=== PATIENT | male | born 1970 | race Two or more races ===

== ENCOUNTER 2019-07-01 22:51 | Inpatient (IN) | payer MEDICAID ==
[~2019-07-01] VITALS: Ht 167.6 cm; Wt 48.9 kg
[2019-07-01] MEDS ORDERED: acetaminophen 650mg rectal suppository RC PRN (23:15)
[2019-07-01] MEDS ORDERED: glucagon, human recombinant 1mg kit SUBCUT PRN (23:15)
[2019-07-01] MEDS ORDERED: proCHLORperazine 10 MG/2 ml inj IV PRN (23:15)
[2019-07-01] MEDS ORDERED: ondansetron/PF 4mg/2ml inj IV PRN (23:15)
[2019-07-01] MEDS ORDERED: MESSAGE TO PHARMACY PO ONE (23:15)
[2019-07-01] MEDS ORDERED: dextrose 50%-water 50ml dispensing syringe IV PRN ×2 (23:15)
[2019-07-01] MEDS ORDERED: acetaminophen 325mg tablet PO PRN ×2 (23:15)
[2019-07-01] MEDS ORDERED: dextrose ORAL solution 15 GM/59 ML bottle PO PRN ×2 (23:15)
[2019-07-01 23:20] VITALS: BP 173/91
[2019-07-02] VITALS (25 sets, daily range): BP systolic 123–191; BP diastolic 67–109
[2019-07-02] MEDS ORDERED: HYDROcodone/acetaminophen 5mg/325mg tablet PO ONE
[2019-07-02] MEDS ORDERED: diphenhydrAMINE 25mg capsule PO PRN (00:05)
[2019-07-02] MEDS ORDERED: normal saline 1000ml 250 ML IV PRN (00:06)
[2019-07-02] MEDS ORDERED: normal saline 1000ml 100 ML IV PRN (00:06)
[2019-07-02] MEDS ORDERED: LIDOcaine 1% (10mg/ml) 2ml vial SQ ONE (00:10)
[2019-07-02 00:34] LABS: ALANINE AMINOTRANSFERASE 32 U/L (12-78); ALBUMIN 2.7 G/DL (3.4-5.0); ALBUMIN/GLOBULIN RATIO 0.8 (1.1-1.5); ALKALINE PHOSPHATASE 102 IU/L (46-116); ANION GAP 28 (8-16); ASPARTATE AMINO TRANSFERASE 24 U/L (10-37); BILIRUBIN,TOTAL 0.4 MG/DL (0.1-1.0); BLOOD UREA NITROGEN 190 MG/DL (7-18); BUN/CREATININE RATIO 17.2 (5.4-32.0); CHLORIDE 103 MMOL/L (99-107); CREATININE 11.04 MG/DL (0.60-1.10); GLUCOSE 195 MG/DL (70-104); LIPASE 183 U/L (73-393); MAGNESIUM 2.4 MG/DL (1.5-2.4); POTASSIUM 5.1 MMOL/L (3.5-5.1); SODIUM 139 MMOL/L (135-145); TOTAL PROTEIN 6.2 G/DL (6.4-8.2); eGFR 5 ML/MIN
[2019-07-02 00:51] LABS: CHOL/HDL RATIO 1.9 (0.00-4.99); CHOLESTEROL 79 MG/DL (0-200); HDL CHOLESTEROL 42 MG/DL (35-60); LDL CHOLESTEROL 30 MG/DL (50-100); TRIGLYCERIDES 38 MG/DL (20-135)
[2019-07-02 00:55] LABS: BASOPHILS % (AUTO) 0.4 % (0-1); EOSINOPHILS % (AUTO) 0.3 % (0-6); HEMATOCRIT 30.8 % (42.0-52.0); HEMOGLOBIN 10.5 g/dl (14.0-17.9); LYMPHOCYTES % (AUTO) 13.3 % (21-51); MEAN CORPUSCULAR HEMOGLOBIN 30.2 PG (27.0-31.0); MEAN CORPUSCULAR VOLUME 88.8 FL (78-98); MEAN PLATELET VOLUME 8.4 FL (7.4-10.4); MONOCYTES # (AUTO) 0.6 X10'3 (0-0.9); MONOCYTES % (AUTO) 7.3 % (2-12); NEUTROPHILS % (AUTO) 78.7 % (42-75); PLATELET COUNT 187 X10'3 (140-440); RED BLOOD COUNT 3.47 X10'6 (4.70-6.10); RED CELL DISTRIBUTION WIDTH 14.7 % (11.5-14.5); WHITE BLOOD COUNT 7.6 X10'3 (4.5-11.0)
[2019-07-02 01:00] LABS: CALCIUM > 20.0 MG/DL (8.5-10.1); PHOSPHORUS 14.6 MG/DL (2.3-4.5)
[2019-07-02 01:20] LABS: PARTIAL THROMBOPLASTIN TIME 31 SECONDS (22-32)
[2019-07-02 01:30] LABS: TROPONIN I < 0.04 NG/ML (0.0-0.05)
[2019-07-02 03:57] LABS: BASOPHILS % (AUTO) 0.2 % (0-1); EOSINOPHILS % (AUTO) 0.5 % (0-6); HEMATOCRIT 31.7 % (42.0-52.0); HEMOGLOBIN 10.8 g/dl (14.0-17.9); LYMPHOCYTES # (AUTO) 0.7 X10'3 (1.1-4.8); LYMPHOCYTES % (AUTO) 9.4 % (21-51); MEAN CORPUSCULAR HEMOGLOBIN 29.9 PG (27.0-31.0); MEAN CORPUSCULAR VOLUME 87.9 FL (78-98); MEAN PLATELET VOLUME 8.2 FL (7.4-10.4); MONOCYTES # (AUTO) 0.5 X10'3 (0-0.9); MONOCYTES % (AUTO) 7.6 % (2-12); NEUTROPHILS # (AUTO) 5.8 X10'3 (1.8-7.7); NEUTROPHILS % (AUTO) 82.3 % (42-75); PLATELET COUNT 201 X10'3 (140-440); RED CELL DISTRIBUTION WIDTH 15.1 % (11.5-14.5); WHITE BLOOD COUNT 7.1 X10'3 (4.5-11.0)
[2019-07-02 04:12] LABS: PARTIAL THROMBOPLASTIN TIME 30 SECONDS (22-32)
[2019-07-02 04:20] LABS: ALANINE AMINOTRANSFERASE 42 U/L (12-78); ALBUMIN 3.7 G/DL (3.4-5.0); ALBUMIN/GLOBULIN RATIO 0.8 (1.1-1.5); ALKALINE PHOSPHATASE 136 IU/L (46-116); ANION GAP 25 (8-16); ASPARTATE AMINO TRANSFERASE 28 U/L (10-37); BILIRUBIN,TOTAL 0.5 MG/DL (0.1-1.0); BLOOD UREA NITROGEN 160 MG/DL (7-18); BUN/CREATININE RATIO 16.1 (5.4-32.0); CHLORIDE 100 MMOL/L (99-107); CREATININE 9.96 MG/DL (0.60-1.10); GLUCOSE 92 MG/DL (70-104); MAGNESIUM 2.6 MG/DL (1.5-2.4); PHOSPHORUS 12.4 MG/DL (2.3-4.5); POTASSIUM 4.1 MMOL/L (3.5-5.1); SODIUM 139 MMOL/L (135-145); TOTAL PROTEIN 8.5 G/DL (6.4-8.2); eGFR 6 ML/MIN
[2019-07-02 04:21] LABS: HEMOGLOBIN A1C 7.5 % (4.5-6.2)
[2019-07-02] MEDS ORDERED: hydrALAZINE 20mg/ml inj. IV ONE (04:40)
[2019-07-02] MEDS ORDERED: DOCU-148 (04:44)
[2019-07-02] MEDS ORDERED: LISI-600 PO (04:45)
[2019-07-02] MEDS ORDERED: VORI200T3 PO (04:46)
[2019-07-02] MEDS ORDERED: BENA20TA82 PO (04:46)
[2019-07-02] MEDS ORDERED: FLUO10CA28 PO (04:49)
[2019-07-02] MEDS ORDERED: CALC667T6 PO (04:51)
[2019-07-02] MEDS ORDERED: LABE200T5 PO (04:54)
[2019-07-02] MEDS ORDERED: SODI650T29 PO (04:55)
[2019-07-02] MEDS ORDERED: [UNRECOGNIZED DRUG - CODE] (04:56)
[2019-07-02] MEDS ORDERED: ACET-2119 PO (04:57)
[2019-07-02] MEDS ORDERED: BRIM5DRO16 RIGHTEYE (04:58)
[2019-07-02] MEDS ORDERED: FURO80TA3 PO (04:59)
[2019-07-02] MEDS ORDERED: INSU100V9 SQ (05:01)
[2019-07-02] MEDS ORDERED: DORZ10DR18 RIGHTEYE (05:03)
[2019-07-02] MEDS: labetalol 100mg tablet PO SCH ×3 (05:23→20:29)
--- NOTE | 2019-07-02 06:30 | NUR ---
received report from patrice BAUER
[2019-07-02] MEDS ORDERED: labetalol 100mg tablet PO SCH (08:00)
[2019-07-02] MEDS ORDERED: non-formulary drug (Benazepril Hcl* (Lotensin*) 1 TAB) PO SCH (08:00)
[2019-07-02] MEDS: brimonidine 0.2% 5 ML ophthalmic drops RIGHTEYE SCH ×2 (08:00→20:00)
[2019-07-02] MEDS: dorzolamide/timolol (Cosopt) ophthalmic drops 10ml bottle RIGHTEYE SCH ×2 (08:00→20:00)
[2019-07-02] MEDS: heparin, porcine 5000 units/ml vial SQ SCH ×2 (08:39→20:30)
[2019-07-02] MEDS: furosemide 40mg tablet PO SCH ×2 (08:40→20:29)
[2019-07-02] MEDS: calcium acetate 667mg (PhosLO) capsule PO SCH ×2 (08:40→17:31)
[2019-07-02] MEDS: sodium bicarbonate 650mg tablet PO SCH ×4 (08:40→20:28)
[2019-07-02] MEDS: docusate sod 100mg capsule PO SCH ×2 (08:40→20:29)
[2019-07-02] MEDS: lisinopril 20mg tablet PO SCH (08:42)
[2019-07-02] MEDS: FLUoxetine 10mg capsule PO SCH (08:47)
[2019-07-02] MEDS: famotidine 20mg tablet PO SCH (08:47)
--- NOTE | 2019-07-02 15:53 | NUR ---
up to the chair with PT
--- NOTE | 2019-07-02 18:20 | NUR ---
Patient in room ICU 2043. I have received report from brooks marie and had the opportunity to ask questions and assume patient care.
[2019-07-02] MEDS: insulin glargine (Lantus) pen - multi-dose SQ SCH (20:37)
--- NOTE | 2019-07-02 20:45 | NUR ---
pt family came in to see patient. does not speak kiswahili but Phuong is fluent in kyrgyz and kiswahili. and phuong reports that patient was in the "hospital back in december and he experienced cardiac arrest then. patient has not been the same mentally sense and will try to answer questions he may not know the answer to in order to not appear confused." reports that patient had a similar episode of unconsciousness on Friday 06/29 and she performed chest compressions and patient woke up." pt not taken to the hospital at that time.
--- NOTE | 2019-07-02 21:30 | NUR ---
pt family brought in prescription eyedrops. eyedrops sent to pharmacy as home meds for use while the patient is in the hospital.
[2019-07-03] VITALS (24 sets, daily range): BP systolic 125–191; BP diastolic 67–103
[2019-07-03 04:27] LABS: BASOPHILS # (AUTO) 0.1 X10'3 (0-0.2); BASOPHILS % (AUTO) 0.6 % (0-1); EOSINOPHILS % (AUTO) 0.5 % (0-6); HEMATOCRIT 30.7 % (42.0-52.0); HEMOGLOBIN 10.3 g/dl (14.0-17.9); LYMPHOCYTES # (AUTO) 1.4 X10'3 (1.1-4.8); MEAN CORPUSCULAR HEMOGLOBIN 29.8 PG (27.0-31.0); MEAN CORPUSCULAR HGB CONC 33.5 g/dL (33.0-36.5); MEAN CORPUSCULAR VOLUME 88.9 FL (78-98); MEAN PLATELET VOLUME 8.3 FL (7.4-10.4); MONOCYTES # (AUTO) 0.7 X10'3 (0-0.9); MONOCYTES % (AUTO) 7.6 % (2-12); NEUTROPHILS # (AUTO) 7.1 X10'3 (1.8-7.7); NEUTROPHILS % (AUTO) 76.3 % (42-75); PLATELET COUNT 202 X10'3 (140-440); RED BLOOD COUNT 3.45 X10'6 (4.70-6.10); RED CELL DISTRIBUTION WIDTH 14.8 % (11.5-14.5); WHITE BLOOD COUNT 9.4 X10'3 (4.5-11.0)
[2019-07-03 04:40] LABS: PARTIAL THROMBOPLASTIN TIME 31 SECONDS (22-32)
[2019-07-03 04:50] LABS: ALANINE AMINOTRANSFERASE 32 U/L (12-78); ALBUMIN 3.1 G/DL (3.4-5.0); ALBUMIN/GLOBULIN RATIO 0.7 (1.1-1.5); ALKALINE PHOSPHATASE 117 IU/L (46-116); ANION GAP 28 (8-16); ASPARTATE AMINO TRANSFERASE 25 U/L (10-37); BILIRUBIN,TOTAL 0.6 MG/DL (0.1-1.0); CALCIUM 7.1 MG/DL (8.5-10.1); CHLORIDE 97 MMOL/L (99-107); GLUCOSE 75 MG/DL (70-104); MAGNESIUM 2.5 MG/DL (1.5-2.4); POTASSIUM 4.1 MMOL/L (3.5-5.1); SODIUM 138 MMOL/L (135-145); TOTAL PROTEIN 7.6 G/DL (6.4-8.2); eGFR 4 ML/MIN
[2019-07-03 05:07] LABS: TOTAL CARBON DIOXIDE 13.5 MMOL/L (24-32)
[2019-07-03 05:08] LABS: BLOOD UREA NITROGEN 168 MG/DL (7-18); BUN/CREATININE RATIO 13.8 (5.4-32.0)
[2019-07-03] MEDS: docusate sod 100mg capsule PO SCH ×2 (08:35→20:00)
[2019-07-03] MEDS: furosemide 40mg tablet PO SCH ×2 (08:35→20:14)
[2019-07-03] MEDS: sodium bicarbonate 650mg tablet PO SCH ×4 (08:35→20:14)
[2019-07-03] MEDS: labetalol 100mg tablet PO SCH ×2 (08:36→20:15)
[2019-07-03] MEDS: famotidine 20mg tablet PO SCH (08:37)
[2019-07-03] MEDS: FLUoxetine 10mg capsule PO SCH (08:37)
[2019-07-03] MEDS: lisinopril 20mg tablet PO SCH (08:37)
[2019-07-03] MEDS: heparin, porcine 5000 units/ml vial SQ SCH ×2 (08:38→20:15)
[2019-07-03] MEDS: calcium acetate 667mg (PhosLO) capsule PO SCH ×2 (09:15→18:15)
[2019-07-03] MEDS: brimonidine 0.2% 5 ML ophthalmic drops RIGHTEYE SCH ×2 (09:15→20:16)
[2019-07-03] MEDS: dorzolamide/timolol (Cosopt) ophthalmic drops 10ml bottle RIGHTEYE SCH ×2 (09:15→20:15)
[2019-07-03] MEDS ORDERED: LIDOcaine 1%/PF 5ML 10 MG/ML VIAL ONE (11:23)
[2019-07-03] MEDS ORDERED: LIDOcaine 1% w/epiNEPHrine 1:200,000 30ml vial ONE (11:37)
[2019-07-03] MEDS ORDERED: fentaNYL/PF 50MCG/1 ML 2ML syringe ONE (11:37)
[2019-07-03] MEDS ORDERED: midazolam 2 mg/2 ml injection ONE (11:37)
[2019-07-03] MEDS ORDERED: heparin 1,000unit/ml 10ml vial 10 ML ONE (11:37)
[2019-07-03] MEDS ORDERED: normal saline 1000ml 100 ML IV PRN (12:34)
[2019-07-03] MEDS ORDERED: normal saline 1000ml 250 ML IV PRN (12:34)
[2019-07-03] MEDS ORDERED: heparin 1,000 units/ml 10ml inj HE ONE ×2 (12:40)
--- NOTE | 2019-07-03 16:34 | NUR ---
Dr. Rell verdugo pt. increased blood pressure to SBP in 180s. Per Dr. Zacarias, tell stunt person to pull off 2L of fluid
--- NOTE | 2019-07-03 19:06 | NUR ---
184..Patient in room ICU 2043. I have received report from Alvin BAUER and had the opportunity to ask questions and assume patient care.
[2019-07-03] MEDS: insulin glargine (Lantus) pen - multi-dose SQ SCH (20:24)
--- NOTE | 2019-07-03 23:05 | NUR ---
2000..Assessment as noted, encouraged to stay off backside, states understanding, family at bedside to assist with communication.
[2019-07-04] VITALS (24 sets, daily range): BP systolic 140–179; BP diastolic 78–101
--- NOTE | 2019-07-04 00:16 | NUR ---
0000..Resting quietly, no changes noted.
--- NOTE | 2019-07-04 04:13 | NUR ---
0400..Continues resting quietly, no changes noted.
[2019-07-04 04:43] LABS: BASOPHILS # (AUTO) 0.1 X10'3 (0-0.2); BASOPHILS % (AUTO) 0.9 % (0-1); EOSINOPHILS % (AUTO) 0.6 % (0-6); HEMATOCRIT 32.8 % (42.0-52.0); HEMOGLOBIN 11.1 g/dl (14.0-17.9); LYMPHOCYTES # (AUTO) 1.1 X10'3 (1.1-4.8); LYMPHOCYTES % (AUTO) 13.7 % (21-51); MEAN CORPUSCULAR HEMOGLOBIN 29.9 PG (27.0-31.0); MEAN CORPUSCULAR VOLUME 87.8 FL (78-98); MEAN PLATELET VOLUME 8.5 FL (7.4-10.4); MONOCYTES # (AUTO) 0.7 X10'3 (0-0.9); MONOCYTES % (AUTO) 8.3 % (2-12); NEUTROPHILS % (AUTO) 76.5 % (42-75); PLATELET COUNT 197 X10'3 (140-440); RED BLOOD COUNT 3.73 X10'6 (4.70-6.10); WHITE BLOOD COUNT 7.9 X10'3 (4.5-11.0)
[2019-07-04 04:53] LABS: PARTIAL THROMBOPLASTIN TIME 28 SECONDS (22-32)
[2019-07-04 05:00] LABS: ALANINE AMINOTRANSFERASE 26 U/L (12-78); ALBUMIN 3.1 G/DL (3.4-5.0); ALBUMIN/GLOBULIN RATIO 0.6 (1.1-1.5); ALKALINE PHOSPHATASE 122 IU/L (46-116); ANION GAP 14 (8-16); ASPARTATE AMINO TRANSFERASE 20 U/L (10-37); BILIRUBIN,TOTAL 0.6 MG/DL (0.1-1.0); BLOOD UREA NITROGEN 64 MG/DL (7-18); BUN/CREATININE RATIO 9.9 (5.4-32.0); CALCIUM 7.7 MG/DL (8.5-10.1); CHLORIDE 97 MMOL/L (99-107); CREATININE 6.46 MG/DL (0.60-1.10); GLUCOSE 122 MG/DL (70-104); MAGNESIUM 2.1 MG/DL (1.5-2.4); PHOSPHORUS 6.8 MG/DL (2.3-4.5); POTASSIUM 3.5 MMOL/L (3.5-5.1); SODIUM 136 MMOL/L (135-145); TOTAL PROTEIN 8.2 G/DL (6.4-8.2); eGFR 9 ML/MIN
--- NOTE | 2019-07-04 06:34 | NUR ---
0630..Problems reprioritized. Patient report given, questions answered & plan of care reviewed with Dario Sandoval RN.
--- NOTE | 2019-07-04 06:35 | NUR ---
Patient in room ICU 2043. I have received report from ANGY BAUER and had the opportunity to ask questions and assume patient care.
[2019-07-04] MEDS: docusate sod 100mg capsule PO SCH ×2 (08:00→19:30)
[2019-07-04] MEDS ORDERED: pneumococcal 23-VAL P-sac vacc 25 mcg/0.5ml vial IMVAC ONE (10:00)
[2019-07-04] MEDS: lactulose 20gm/30ml cup PO PRN (10:06)
[2019-07-04] MEDS: calcium acetate 667mg (PhosLO) capsule PO SCH ×2 (10:07→13:13)
[2019-07-04] MEDS: furosemide 40mg tablet PO SCH ×2 (10:08→19:30)
[2019-07-04] MEDS: labetalol 100mg tablet PO SCH ×2 (10:08→19:31)
[2019-07-04] MEDS: famotidine 20mg tablet PO SCH (10:08)
[2019-07-04] MEDS: sodium bicarbonate 650mg tablet PO SCH ×4 (10:08→20:43)
[2019-07-04] MEDS: FLUoxetine 10mg capsule PO SCH (10:09)
[2019-07-04] MEDS: lisinopril 20mg tablet PO SCH (10:09)
[2019-07-04] MEDS: heparin, porcine 5000 units/ml vial SQ SCH ×2 (10:10→19:33)
[2019-07-04] MEDS: dorzolamide/timolol (Cosopt) ophthalmic drops 10ml bottle RIGHTEYE SCH ×2 (10:15→20:43)
[2019-07-04] MEDS: brimonidine 0.2% 5 ML ophthalmic drops RIGHTEYE SCH ×2 (10:16→20:43)
--- NOTE | 2019-07-04 11:13 | NUR ---
spoke with wound nurse regarding pt old wound on coccyx gluteal fold area. when pressure is applied, drainage is expressed on left gluteal fold and upper left cheek. patient's states this happens occasionally but has not happened in a few years. will inform .
[2019-07-04] MEDS ORDERED: LIDOcaine 1%/PF 5ML 10 MG/ML VIAL SQ ONE (14:45)
[2019-07-04] MEDS ORDERED: fentaNYL/PF 50MCG/1 ML 2ML syringe IV PRN (14:45)
[2019-07-04] MEDS ORDERED: midazolam 2 mg/2 ml injection IV PRN (14:45)
[2019-07-04] MEDS ORDERED: heparin 1,000 UNITS/NS 500ml 500 ML ICATH ONE (14:45)
[2019-07-04] MEDS ORDERED: LIDOcaine 1%/PF 5ML 10 MG/ML VIAL ONE (14:58)
[2019-07-04] MEDS ORDERED: iohexol 300mg/ml 100ml inj. ONE (14:58)
[2019-07-04] MEDS ORDERED: heparin 1,000 UNITS/NS 500ml 500 ML ONE (15:01)
--- NOTE | 2019-07-04 15:03 | NUR ---
DM education, A1c is 7.5; patient and family met at bedside. Patient speaks very little Singaporean however family member at bedside fluent in both Singaporean and [place]. Provided written DM education handout in [place]. Patient's family member report that they have educated themselves on both renal and carb controlled diet and taught themselves how to manage potassium, phosphorus and protein, states that he was so restrictive at one point that he had to receive potassium replacement. Patient's family has no questions for the RD at this time. Pt recently had tunneled dialysis catheter placed this visit as his AVF was not allowing for sufficient dialysis. Patient's renal labs clearly improved since admission with BUN down to 64, phosphorus down to 6.8 from 14.6; he is receiving phoslo with meals. Patient's appetite is fair, eating 50-75% when first admitted, declined to 25% and trending upward back to 75% of the latest meal. Patient able to meet calorie and protein needs for HD with 75% PO intake. Will continue to follow. Recommend: 1. Continue renal diet 2. Continue PhosLO as prescribed by MD 3. Bowel care as needed 4. Encourage PO 5. Weight per rx Addendum: 07/04/19 at [address] Amended: Links added.
[2019-07-04] MEDS ORDERED: fentaNYL/PF 50MCG/1 ML 2ML syringe ONE (15:11)
--- NOTE | 2019-07-04 15:14 | NUR ---
Problems reprioritized. Patient report given, questions answered & plan of care reviewed with Kori BAUER.
[2019-07-04] MEDS ORDERED: hydrALAZINE 20mg/ml inj. IV ONE (15:29)
--- NOTE | 2019-07-04 17:22 | NUR ---
AGREE WITH PHYSICAL ASSESSMENT DONE IN ICU EXCEPT FOR CHANGES MADE Addendum: 07/04/19 at 1723 by Farnaz Rodríguez RN Amended: Links added.
--- NOTE | 2019-07-04 18:26 | NUR ---
Problems reprioritized. Patient report given, questions answered & plan of care reviewed with RC BAUER.
--- NOTE | 2019-07-04 18:30 | NUR ---
Patient in room [facility] 345. I have received report from Karen BAUER and had the opportunity to ask questions and assume patient care.
[2019-07-04] MEDS: clindamycin 150mg capsule PO SCH (19:30)
[2019-07-04] MEDS: insulin glargine (Lantus) pen - multi-dose SQ SCH (21:00)
[2019-07-05] VITALS: BP 155/85
[2019-07-05] MEDS: clindamycin 150mg capsule PO SCH ×4 (01:55→20:38)
[2019-07-05 04:37] VITALS: BP 178/95
[2019-07-05 04:53] LABS: BASOPHILS # (AUTO) 0.1 X10'3 (0-0.2); EOSINOPHILS # (AUTO) 0.2 X10'3 (0-0.9); EOSINOPHILS % (AUTO) 2.3 % (0-6); HEMOGLOBIN 10.6 g/dl (14.0-17.9); LYMPHOCYTES # (AUTO) 1.3 X10'3 (1.1-4.8); LYMPHOCYTES % (AUTO) 16.2 % (21-51); MEAN CORPUSCULAR HEMOGLOBIN 29.6 PG (27.0-31.0); MEAN CORPUSCULAR HGB CONC 33.1 g/dL (33.0-36.5); MEAN CORPUSCULAR VOLUME 89.3 FL (78-98); MEAN PLATELET VOLUME 8.4 FL (7.4-10.4); MONOCYTES # (AUTO) 0.6 X10'3 (0-0.9); MONOCYTES % (AUTO) 8.1 % (2-12); NEUTROPHILS # (AUTO) 5.8 X10'3 (1.8-7.7); NEUTROPHILS % (AUTO) 72.4 % (42-75); PARTIAL THROMBOPLASTIN TIME 28 SECONDS (22-32); PLATELET COUNT 179 X10'3 (140-440); RED BLOOD COUNT 3.58 X10'6 (4.70-6.10); RED CELL DISTRIBUTION WIDTH 14.9 % (11.5-14.5)
[2019-07-05 05:02] LABS: ALANINE AMINOTRANSFERASE 24 U/L (12-78); ALBUMIN/GLOBULIN RATIO 0.6 (1.1-1.5); ALKALINE PHOSPHATASE 112 IU/L (46-116); ANION GAP 15 (8-16); ASPARTATE AMINO TRANSFERASE 16 U/L (10-37); BILIRUBIN,TOTAL 0.5 MG/DL (0.1-1.0); BLOOD UREA NITROGEN 77 MG/DL (7-18); BUN/CREATININE RATIO 9.6 (5.4-32.0); CALCIUM 8.1 MG/DL (8.5-10.1); CHLORIDE 96 MMOL/L (99-107); CREATININE 8.01 MG/DL (0.60-1.10); GLUCOSE 122 MG/DL (70-104); MAGNESIUM 2.3 MG/DL (1.5-2.4); PHOSPHORUS 8.3 MG/DL (2.3-4.5); POTASSIUM 3.7 MMOL/L (3.5-5.1); SODIUM 135 MMOL/L (135-145); TOTAL PROTEIN 7.8 G/DL (6.4-8.2); eGFR 7 ML/MIN
--- NOTE | 2019-07-05 06:15 | NUR ---
Patient in room [facility] 345. I have received report from Ramona BAUER and had the opportunity to ask questions and assume patient care.
--- NOTE | 2019-07-05 06:40 | NUR ---
gave report to Irene BAUER pt is resting on RA in no apparent distress, breaths even and unlabored, call light and items of freq use within reach. Parts Specialist phone at bedside
[2019-07-05 07:06] VITALS: BP 179/98
[2019-07-05] MEDS: FLUoxetine 10mg capsule PO SCH (08:00)
[2019-07-05 08:35] LABS: HBSAG SCREEN Negative (Negative)
--- NOTE | 2019-07-05 08:49 | NUR ---
Problems reprioritized. Patient report given, questions answered & plan of care reviewed with Jolly BAUER.
[2019-07-05] MEDS ORDERED: heparin 1,000unit/ml 10ml vial 10 ML IV ONE (08:54)
[2019-07-05] MEDS ORDERED: normal saline 1000ml 250 ML IV PRN (08:54)
[2019-07-05] MEDS ORDERED: epoetin 20,000 units/ml inj IV ONE (08:55)
[2019-07-05] MEDS ORDERED: heparin 1,000 units/ml 10ml inj HE ONE ×2 (09:00)
--- NOTE | 2019-07-05 09:13 | NUR ---
Patient in room [facility] 345. I have received report from Irene BAUER and had the opportunity to ask questions and assume patient care.
[2019-07-05] MEDS: docusate sod 100mg capsule PO SCH ×2 (09:22→20:38)
[2019-07-05] MEDS: furosemide 40mg tablet PO SCH ×2 (09:27→20:38)
[2019-07-05] MEDS: famotidine 20mg tablet PO SCH (09:28)
[2019-07-05] MEDS: sodium bicarbonate 650mg tablet PO SCH ×4 (09:29→20:37)
[2019-07-05] MEDS: labetalol 100mg tablet PO SCH ×2 (09:29→20:38)
[2019-07-05] MEDS: calcium acetate 667mg (PhosLO) capsule PO SCH ×2 (09:31→17:28)
[2019-07-05] MEDS: heparin, porcine 5000 units/ml vial SQ SCH ×2 (09:33→20:38)
[2019-07-05] MEDS: lisinopril 20mg tablet PO SCH (09:41)
[2019-07-05] MEDS: brimonidine 0.2% 5 ML ophthalmic drops RIGHTEYE SCH ×2 (10:24→20:39)
[2019-07-05] MEDS: dorzolamide/timolol (Cosopt) ophthalmic drops 10ml bottle RIGHTEYE SCH ×2 (10:24→20:39)
--- NOTE | 2019-07-05 10:35 | NUR ---
DR TYLER CONSULTED PT AND ORDERED AN ULTRASOUND OF FISTULA TO DOUBLE CHECK THAT IT IS NOT USEFUL ANYMORE AFTER IR TRIED TO UNCLOGGED IT. REPORT SAYS THAT IT IS OPEN "BUT NOT FOR LONG". DR PORTILLO MIGHT BE ABLE TO PUT DO SURGERY FOR PT BY NEXT SUNDAY.
[2019-07-05 12:00] VITALS: BP 169/92
[2019-07-05] MEDS: levoFLOXACIN 250mg tablet PO SCH (12:34)
--- NOTE | 2019-07-05 13:04 | NUR ---
Pt has a high BP of 175/106 HR 88. Called Dawna Saldaña and she ordered Hydralazine 10mg IV Once. BP will be re-checked in 15 min.
[2019-07-05] MEDS ORDERED: hydrALAZINE 20mg/ml inj. IV ONE (13:05)
[2019-07-05] MEDS ORDERED: hydrALAZINE 20mg/ml inj. IV PRN (16:15)
[2019-07-05] MEDS: amLODIPine 5mg tablet PO SCH (17:27)
--- NOTE | 2019-07-05 18:42 | NUR ---
Received report from Jolly pt is resting in bed, call light and items of freq use within reach.
--- NOTE | 2019-07-05 18:43 | NUR ---
Problems reprioritized. Patient report given, questions answered & plan of care reviewed with Krystal BAUER.
[2019-07-05 19:00] VITALS: BP 150/82
[2019-07-05] MEDS: insulin glargine (Lantus) pen - multi-dose SQ SCH (21:00)
[2019-07-06 00:03] VITALS: BP 153/85
[2019-07-06] MEDS: clindamycin 150mg capsule PO SCH ×4 (02:08→20:28)
[2019-07-06 05:13] LABS: PARTIAL THROMBOPLASTIN TIME 28 SECONDS (22-32)
[2019-07-06 05:29] LABS: ALANINE AMINOTRANSFERASE 21 U/L (12-78); ALBUMIN 2.9 G/DL (3.4-5.0); ALBUMIN/GLOBULIN RATIO 0.6 (1.1-1.5); ALKALINE PHOSPHATASE 107 IU/L (46-116); ANION GAP 9 (8-16); ASPARTATE AMINO TRANSFERASE 18 U/L (10-37); BILIRUBIN,TOTAL 0.5 MG/DL (0.1-1.0); BLOOD UREA NITROGEN 32 MG/DL (7-18); BUN/CREATININE RATIO 6.6 (5.4-32.0); CALCIUM 8.4 MG/DL (8.5-10.1); CHLORIDE 100 MMOL/L (99-107); CREATININE 4.82 MG/DL (0.60-1.10); GLUCOSE 125 MG/DL (70-104); PHOSPHORUS 3.4 MG/DL (2.3-4.5); POTASSIUM 3.7 MMOL/L (3.5-5.1); SODIUM 136 MMOL/L (135-145); TOTAL CARBON DIOXIDE 27.3 MMOL/L (24-32); TOTAL PROTEIN 7.7 G/DL (6.4-8.2); eGFR 13 ML/MIN
[2019-07-06 05:56] LABS: BASOPHILS # (AUTO) 0.1 X10'3 (0-0.2); EOSINOPHILS # (AUTO) 0.2 X10'3 (0-0.9); EOSINOPHILS % (AUTO) 2.4 % (0-6); HEMATOCRIT 30.2 % (42.0-52.0); HEMOGLOBIN 10.1 g/dl (14.0-17.9); LYMPHOCYTES # (AUTO) 1.3 X10'3 (1.1-4.8); LYMPHOCYTES % (AUTO) 17.4 % (21-51); MEAN CORPUSCULAR HEMOGLOBIN 29.8 PG (27.0-31.0); MEAN CORPUSCULAR HGB CONC 33.5 g/dL (33.0-36.5); MEAN PLATELET VOLUME 8.2 FL (7.4-10.4); MONOCYTES # (AUTO) 0.6 X10'3 (0-0.9); MONOCYTES % (AUTO) 8.4 % (2-12); NEUTROPHILS # (AUTO) 5.4 X10'3 (1.8-7.7); NEUTROPHILS % (AUTO) 70.8 % (42-75); PLATELET COUNT 174 X10'3 (140-440); RED BLOOD COUNT 3.39 X10'6 (4.70-6.10); RED CELL DISTRIBUTION WIDTH 14.9 % (11.5-14.5); WHITE BLOOD COUNT 7.6 X10'3 (4.5-11.0)
--- NOTE | 2019-07-06 06:40 | NUR ---
Gave report to Jolly BAUER pt is resting on RA call lights and items of freq use within reach.
--- NOTE | 2019-07-06 06:42 | NUR ---
Patient in room [facility] 345. I have received report from Krystal BAUER and had the opportunity to ask questions and assume patient care.
[2019-07-06] MEDS: sodium bicarbonate 650mg tablet PO SCH ×4 (07:34→20:29)
[2019-07-06] MEDS: furosemide 40mg tablet PO SCH ×2 (07:35→20:29)
[2019-07-06] MEDS: calcium acetate 667mg (PhosLO) capsule PO SCH ×2 (07:35→17:52)
[2019-07-06] MEDS: famotidine 20mg tablet PO SCH (07:35)
[2019-07-06] MEDS: amLODIPine 5mg tablet PO SCH (07:35)
[2019-07-06] MEDS: brimonidine 0.2% 5 ML ophthalmic drops RIGHTEYE SCH ×2 (07:37→20:27)
[2019-07-06] MEDS: FLUoxetine 10mg capsule PO SCH (07:37)
[2019-07-06] MEDS: dorzolamide/timolol (Cosopt) ophthalmic drops 10ml bottle RIGHTEYE SCH ×2 (07:37→20:31)
[2019-07-06] MEDS: heparin, porcine 5000 units/ml vial SQ SCH ×2 (07:37→20:34)
[2019-07-06] MEDS: labetalol 100mg tablet PO SCH ×2 (07:38→10:04)
[2019-07-06] MEDS: docusate sod 100mg capsule PO SCH ×2 (07:38→20:29)
[2019-07-06 08:00] VITALS: BP 157/88
[2019-07-06] MEDS: levoFLOXACIN 250mg tablet PO SCH (11:38)
[2019-07-06 12:00] VITALS: BP 120/71
--- NOTE | 2019-07-06 16:46 | NUR ---
spoke to Dr Melton regarding pt's FISTULA & WOUND (BUTTOCKS) ultrasounds. Dr. Melton stated that pt can either stay and wait until sunday for surgery, new fistula & wound debridement, or go home and come back Sunday for surgery.
[2019-07-06 18:00] VITALS: BP 133/71
--- NOTE | 2019-07-06 18:48 | NUR ---
Patient in room [facility] 345. I have received report from JUANCARLOS Dyson and had the opportunity to ask questions and assume patient care.
[2019-07-06] MEDS: lactobacillus rhamnosus 10,000 MMU CELLS/CAPSULE PO SCH (20:29)
[2019-07-06] MEDS: insulin glargine (Lantus) pen - multi-dose SQ SCH (21:26)
[2019-07-07 00:23] VITALS: BP 147/80
[2019-07-07] MEDS: clindamycin 150mg capsule PO SCH ×4 (02:01→21:03)
--- NOTE | 2019-07-07 06:05 | NUR ---
Problems reprioritized. Patient report given, questions answered & plan of care reviewed with JUANCARLOS Sterling.
[2019-07-07 06:13] LABS: BASOPHILS # (AUTO) 0.1 X10'3 (0-0.2); EOSINOPHILS # (AUTO) 0.2 X10'3 (0-0.9); EOSINOPHILS % (AUTO) 2.8 % (0-6); HEMATOCRIT 30.1 % (42.0-52.0); HEMOGLOBIN 10.2 g/dl (14.0-17.9); LYMPHOCYTES # (AUTO) 1.3 X10'3 (1.1-4.8); LYMPHOCYTES % (AUTO) 17.4 % (21-51); MEAN CORPUSCULAR HEMOGLOBIN 30.1 PG (27.0-31.0); MEAN CORPUSCULAR HGB CONC 33.9 g/dL (33.0-36.5); MEAN PLATELET VOLUME 8.2 FL (7.4-10.4); MONOCYTES # (AUTO) 0.6 X10'3 (0-0.9); MONOCYTES % (AUTO) 7.4 % (2-12); NEUTROPHILS # (AUTO) 5.6 X10'3 (1.8-7.7); NEUTROPHILS % (AUTO) 71.4 % (42-75); PLATELET COUNT 177 X10'3 (140-440); RED BLOOD COUNT 3.38 X10'6 (4.70-6.10); RED CELL DISTRIBUTION WIDTH 14.7 % (11.5-14.5); WHITE BLOOD COUNT 7.8 X10'3 (4.5-11.0)
[2019-07-07 06:27] LABS: PARTIAL THROMBOPLASTIN TIME 27 SECONDS (22-32)
[2019-07-07 06:29] LABS: ALANINE AMINOTRANSFERASE 31 U/L (12-78); ALBUMIN 2.9 G/DL (3.4-5.0); ALBUMIN/GLOBULIN RATIO 0.6 (1.1-1.5); ALKALINE PHOSPHATASE 102 IU/L (46-116); ANION GAP 12 (8-16); ASPARTATE AMINO TRANSFERASE 32 U/L (10-37); BILIRUBIN,TOTAL 0.5 MG/DL (0.1-1.0); BLOOD UREA NITROGEN 47 MG/DL (7-18); BUN/CREATININE RATIO 6.6 (5.4-32.0); CALCIUM 8.1 MG/DL (8.5-10.1); CHLORIDE 98 MMOL/L (99-107); CREATININE 7.07 MG/DL (0.60-1.10); GLUCOSE 113 MG/DL (70-104); MAGNESIUM 2.1 MG/DL (1.5-2.4); PHOSPHORUS 4.1 MG/DL (2.3-4.5); POTASSIUM 4.1 MMOL/L (3.5-5.1); SODIUM 135 MMOL/L (135-145); TOTAL PROTEIN 7.7 G/DL (6.4-8.2); eGFR 8 ML/MIN
--- NOTE | 2019-07-07 06:40 | NUR ---
Patient in room [facility] 345. I have received report from LUDY BAUER and had the opportunity to ask questions and assume patient care.
[2019-07-07 07:00] VITALS: BP 145/70
[2019-07-07] MEDS: docusate sod 100mg capsule PO SCH ×2 (07:39→21:03)
[2019-07-07] MEDS: calcium acetate 667mg (PhosLO) capsule PO SCH ×2 (07:39→17:43)
[2019-07-07] MEDS: lactobacillus rhamnosus 10,000 MMU CELLS/CAPSULE PO SCH ×2 (07:39→20:00)
[2019-07-07] MEDS: furosemide 40mg tablet PO SCH ×2 (07:40→21:03)
[2019-07-07] MEDS: sodium bicarbonate 650mg tablet PO SCH ×4 (07:40→21:03)
[2019-07-07] MEDS: famotidine 20mg tablet PO SCH (07:40)
[2019-07-07] MEDS: labetalol 100mg tablet PO SCH ×2 (07:40→21:26)
[2019-07-07] MEDS: amLODIPine 5mg tablet PO SCH (07:40)
[2019-07-07] MEDS: brimonidine 0.2% 5 ML ophthalmic drops RIGHTEYE SCH ×2 (07:41→21:10)
[2019-07-07] MEDS: dorzolamide/timolol (Cosopt) ophthalmic drops 10ml bottle RIGHTEYE SCH ×2 (07:41→21:09)
[2019-07-07] MEDS: heparin, porcine 5000 units/ml vial SQ SCH ×2 (07:42→21:05)
[2019-07-07] MEDS: FLUoxetine 10mg capsule PO SCH (08:00)
[2019-07-07] MEDS: insulin Lispro (HumaLOG) vial - multi-dose SQ SCH (09:10)
[2019-07-07 11:00] VITALS: BP 150/82
[2019-07-07] MEDS: levoFLOXACIN 250mg tablet PO SCH (12:00)
--- NOTE | 2019-07-07 14:37 | NUR ---
Jf from Pharmacy called and advised pt has a C&S result that makes pt's antibiotics resistant to those organisms. Jf called Dr Lovell several times and has not gotten any response. I tried calling Dr. Lovell after that conversation and Dr. Lovell was calling on the other line very upset. He stated that we have been paging him every 2 min and was very upset. I explain that Jf from Pharmacy called and what he said about pt's results along with a request to change antibiotics for pt d/t C&S results. He states that he will take care of it when ever he can, and hung up.
--- NOTE | 2019-07-07 18:33 | NUR ---
Patient in room [facility] 345. I have received report from JUANCARLOS Azevedo and had the opportunity to ask questions and assume patient care.
--- NOTE | 2019-07-07 18:58 | NUR ---
Problems reprioritized. Patient report given, questions answered & plan of care reviewed with jack marie.
[2019-07-07] MEDS: insulin glargine (Lantus) pen - multi-dose SQ SCH (21:16)
[2019-07-07 23:15] VITALS: BP 139/76
[2019-07-08] VITALS: BP 151/82
[2019-07-08] MEDS: clindamycin 150mg capsule PO SCH ×3 (02:00→14:18)
--- NOTE | 2019-07-08 02:54 | NUR ---
Patients Clindamycin held due to the fact culture came back and the organism is resistant to the this medication.
[2019-07-08 05:00] LABS: BASOPHILS # (AUTO) 0.1 X10'3 (0-0.2); BASOPHILS % (AUTO) 0.8 % (0-1); EOSINOPHILS # (AUTO) 0.2 X10'3 (0-0.9); EOSINOPHILS % (AUTO) 2.5 % (0-6); HEMATOCRIT 29.5 % (42.0-52.0); HEMOGLOBIN 9.9 g/dl (14.0-17.9); LYMPHOCYTES # (AUTO) 1.2 X10'3 (1.1-4.8); LYMPHOCYTES % (AUTO) 13.9 % (21-51); MEAN CORPUSCULAR HEMOGLOBIN 29.8 PG (27.0-31.0); MEAN CORPUSCULAR HGB CONC 33.6 g/dL (33.0-36.5); MEAN CORPUSCULAR VOLUME 88.6 FL (78-98); MEAN PLATELET VOLUME 8.2 FL (7.4-10.4); MONOCYTES # (AUTO) 0.6 X10'3 (0-0.9); MONOCYTES % (AUTO) 7.3 % (2-12); NEUTROPHILS # (AUTO) 6.5 X10'3 (1.8-7.7); NEUTROPHILS % (AUTO) 75.5 % (42-75); PLATELET COUNT 192 X10'3 (140-440); RED BLOOD COUNT 3.33 X10'6 (4.70-6.10); RED CELL DISTRIBUTION WIDTH 14.6 % (11.5-14.5); WHITE BLOOD COUNT 8.7 X10'3 (4.5-11.0)
[2019-07-08 05:15] LABS: PARTIAL THROMBOPLASTIN TIME 27 SECONDS (22-32)
[2019-07-08 05:17] LABS: ALANINE AMINOTRANSFERASE 30 U/L (12-78); ALBUMIN 2.8 G/DL (3.4-5.0); ALBUMIN/GLOBULIN RATIO 0.6 (1.1-1.5); ALKALINE PHOSPHATASE 116 IU/L (46-116); ANION GAP 12 (8-16); ASPARTATE AMINO TRANSFERASE 29 U/L (10-37); BILIRUBIN,TOTAL 0.4 MG/DL (0.1-1.0); BLOOD UREA NITROGEN 57 MG/DL (7-18); BUN/CREATININE RATIO 6.8 (5.4-32.0); CALCIUM 8.3 MG/DL (8.5-10.1); CHLORIDE 97 MMOL/L (99-107); CREATININE 8.34 MG/DL (0.60-1.10); GLUCOSE 140 MG/DL (70-104); MAGNESIUM 2.4 MG/DL (1.5-2.4); PHOSPHORUS 4.4 MG/DL (2.3-4.5); SODIUM 135 MMOL/L (135-145); TOTAL CARBON DIOXIDE 25.7 MMOL/L (24-32); TOTAL PROTEIN 7.3 G/DL (6.4-8.2); eGFR 7 ML/MIN
--- NOTE | 2019-07-08 06:33 | NUR ---
Problems reprioritized. Patient report given, questions answered & plan of care reviewed with JUANCARLOS Pineda and JUANCARLOS Hair.
--- NOTE | 2019-07-08 06:39 | NUR ---
Patient in room [facility] 345. I have received report from Polo BAUER and had the opportunity to ask questions and assume patient care.
--- NOTE | 2019-07-08 06:48 | NUR ---
Patient in room [facility] 345. I have received report from Bethany marie and had the opportunity to ask questions and assume patient care.
[2019-07-08] MEDS: labetalol 100mg tablet PO SCH ×2 (07:13→20:58)
[2019-07-08] MEDS: sodium bicarbonate 650mg tablet PO SCH ×4 (07:13→20:59)
[2019-07-08] MEDS: FLUoxetine 10mg capsule PO SCH (07:14)
[2019-07-08] MEDS: docusate sod 100mg capsule PO SCH ×2 (07:14→20:58)
[2019-07-08] MEDS: calcium acetate 667mg (PhosLO) capsule PO SCH ×2 (07:14→17:32)
[2019-07-08] MEDS: amLODIPine 5mg tablet PO SCH (07:14)
[2019-07-08] MEDS: furosemide 40mg tablet PO SCH ×2 (07:15→20:59)
[2019-07-08] MEDS: dorzolamide/timolol (Cosopt) ophthalmic drops 10ml bottle RIGHTEYE SCH ×2 (07:17→20:59)
[2019-07-08] MEDS: heparin, porcine 5000 units/ml vial SQ SCH ×2 (07:17→21:01)
[2019-07-08] MEDS: lactulose 20gm/30ml cup PO PRN ×2 (07:18→07:37)
[2019-07-08] MEDS: lactobacillus rhamnosus 10,000 MMU CELLS/CAPSULE PO SCH ×2 (07:29→20:58)
[2019-07-08] MEDS: famotidine 20mg tablet PO SCH (07:29)
[2019-07-08] MEDS: brimonidine 0.2% 5 ML ophthalmic drops RIGHTEYE SCH ×2 (07:31→20:59)
[2019-07-08] MEDS ORDERED: heparin 1,000unit/ml 10ml vial 10 ML IV ONE (07:57)
[2019-07-08] MEDS ORDERED: normal saline 1000ml 250 ML IV PRN (07:57)
[2019-07-08 08:00] VITALS: BP 157/88
[2019-07-08] MEDS ORDERED: epoetin 20,000 units/ml inj IV ONE (08:00)
[2019-07-08] MEDS ORDERED: heparin 1,000 units/ml 10ml inj HE ONE ×2 (08:05)
[2019-07-08] MEDS: insulin Lispro (HumaLOG) vial - multi-dose SQ SCH ×3 (08:29→18:34)
[2019-07-08 11:19] VITALS: BP 152/82
--- NOTE | 2019-07-08 12:02 | NUR ---
Dr Lovell contacted about changing Pt's ABX. Waiting on new orders.
[2019-07-08] MEDS: levoFLOXACIN 250mg tablet PO SCH (12:55)
--- NOTE | 2019-07-08 15:24 | NUR ---
Reassessment: Patient is eating well on the renal diet, eating 75-100% of his meals and meeting needs for hemodialysis. Phosphorus is WNL. Will continue to follow. Recommend: 1. Continue renal diet 2. Continue PhosLO as prescribed by MD 3. Bowel care as needed 4. Encourage PO 5. Weight per rx Addendum: 07/08/19 at [address] Amended: Links added.
--- NOTE | 2019-07-08 18:39 | NUR ---
Problems reprioritized. Patient report given, questions answered & plan of care reviewed with Katina BAUER.
[2019-07-08 20:00] VITALS: BP 158/86
[2019-07-08] MEDS: insulin glargine (Lantus) pen - multi-dose SQ SCH (21:00)
[2019-07-09] VITALS (19 sets, daily range): BP systolic 125–170; BP diastolic 75–94
[2019-07-09 05:02] LABS: BASOPHILS # (AUTO) 0.1 X10'3 (0-0.2); BASOPHILS % (AUTO) 1.2 % (0-1); EOSINOPHILS # (AUTO) 0.2 X10'3 (0-0.9); EOSINOPHILS % (AUTO) 2.6 % (0-6); HEMATOCRIT 31.5 % (42.0-52.0); HEMOGLOBIN 10.7 g/dl (14.0-17.9); LYMPHOCYTES # (AUTO) 1.4 X10'3 (1.1-4.8); LYMPHOCYTES % (AUTO) 14.7 % (21-51); MEAN CORPUSCULAR HEMOGLOBIN 30.1 PG (27.0-31.0); MEAN CORPUSCULAR HGB CONC 33.9 g/dL (33.0-36.5); MEAN CORPUSCULAR VOLUME 88.9 FL (78-98); MEAN PLATELET VOLUME 8.1 FL (7.4-10.4); MONOCYTES # (AUTO) 0.6 X10'3 (0-0.9); MONOCYTES % (AUTO) 6.5 % (2-12); PLATELET COUNT 226 X10'3 (140-440); RED BLOOD COUNT 3.54 X10'6 (4.70-6.10); RED CELL DISTRIBUTION WIDTH 14.7 % (11.5-14.5); WHITE BLOOD COUNT 9.4 X10'3 (4.5-11.0)
[2019-07-09 05:08] LABS: PARTIAL THROMBOPLASTIN TIME 28 SECONDS (22-32)
[2019-07-09 05:27] LABS: ALANINE AMINOTRANSFERASE 38 U/L (12-78); ALBUMIN 2.9 G/DL (3.4-5.0); ALBUMIN/GLOBULIN RATIO 0.6 (1.1-1.5); ALKALINE PHOSPHATASE 113 IU/L (46-116); ANION GAP 9 (8-16); ASPARTATE AMINO TRANSFERASE 39 U/L (10-37); BILIRUBIN,TOTAL 0.4 MG/DL (0.1-1.0); BLOOD UREA NITROGEN 37 MG/DL (7-18); BUN/CREATININE RATIO 6.9 (5.4-32.0); CALCIUM 8.3 MG/DL (8.5-10.1); CHLORIDE 98 MMOL/L (99-107); CREATININE 5.35 MG/DL (0.60-1.10); GLUCOSE 172 MG/DL (70-104); MAGNESIUM 2.1 MG/DL (1.5-2.4); PHOSPHORUS 3.7 MG/DL (2.3-4.5); POTASSIUM 4.5 MMOL/L (3.5-5.1); SODIUM 136 MMOL/L (135-145); TOTAL CARBON DIOXIDE 28.8 MMOL/L (24-32); TOTAL PROTEIN 7.8 G/DL (6.4-8.2); eGFR 12 ML/MIN
--- NOTE | 2019-07-09 06:56 | NUR ---
Patient in room [facility] 345. I have received report from JUANCARLOS MCDONALD and had the opportunity to ask questions and assume patient care.
--- NOTE | 2019-07-09 06:57 | NUR ---
Patient in room [facility] 345. I have received report from JUANCARLOS MCDONALD and had the opportunity to ask questions and assume patient care.
[2019-07-09] MEDS: furosemide 40mg tablet PO SCH ×2 (07:22→21:04)
[2019-07-09] MEDS: sodium bicarbonate 650mg tablet PO SCH ×4 (07:23→21:05)
[2019-07-09] MEDS: lactobacillus rhamnosus 10,000 MMU CELLS/CAPSULE PO SCH ×2 (07:23→21:06)
[2019-07-09] MEDS: labetalol 100mg tablet PO SCH ×2 (07:23→21:04)
[2019-07-09] MEDS: famotidine 20mg tablet PO SCH (07:25)
[2019-07-09] MEDS: docusate sod 100mg capsule PO SCH ×2 (07:25→21:05)
[2019-07-09] MEDS: FLUoxetine 10mg capsule PO SCH (07:25)
[2019-07-09] MEDS: amLODIPine 5mg tablet PO SCH (07:25)
[2019-07-09] MEDS: amox tr/potassium clavulanate 500mg/125mg TAB PO SCH (07:30)
[2019-07-09] MEDS: calcium acetate 667mg (PhosLO) capsule PO SCH ×2 (07:30→17:30)
[2019-07-09] MEDS: heparin, porcine 5000 units/ml vial SQ SCH ×2 (08:00→21:05)
[2019-07-09] MEDS: brimonidine 0.2% 5 ML ophthalmic drops RIGHTEYE SCH ×2 (11:06→21:03)
[2019-07-09] MEDS: dorzolamide/timolol (Cosopt) ophthalmic drops 10ml bottle RIGHTEYE SCH ×2 (11:06→21:03)
[2019-07-09] MEDS ORDERED: ceFAZolin 1000mg inj ONE (15:53)
[2019-07-09] MEDS ORDERED: ringers solution, lacted 1,000 ML IV SCH (15:54)
[2019-07-09] MEDS ORDERED: fentaNYL/PF 50MCG/1 ML 2ML syringe IV PRN ×2 (15:55)
[2019-07-09] MEDS ORDERED: hydrALAZINE 20mg/ml inj. IV PRN (15:55)
[2019-07-09] MEDS ORDERED: morphine 4 MG/ML inj SYRINge IV PRN ×2 (15:55)
[2019-07-09] MEDS ORDERED: enalaprilat dihydrate 2.5mg/2ml vial IV PRN (15:55)
[2019-07-09] MEDS ORDERED: ondansetron/PF 4mg/2ml inj IV PRN (15:55)
--- NOTE | 2019-07-09 15:58 | NUR ---
Patient down to OR.
[2019-07-09] MEDS ORDERED: fentaNYL/PF 50MCG/1 ML 2ML syringe ONE (16:10)
[2019-07-09] MEDS ORDERED: midazolam 2 mg/2 ml injection ONE (16:10)
[2019-07-09] MEDS ORDERED: etomidate 2mg/ml inj. ONE (16:11)
[2019-07-09] MEDS ORDERED: bacitracin 15gm ointment TP ONE (16:32)
[2019-07-09] MEDS ORDERED: hydrALAZINE 20mg/ml inj. IV ONE (16:32)
--- NOTE | 2019-07-09 16:41 | NUR ---
Received from OR via BED, accompanied by Anesthesiologist DR Stewart report given by Anesthesiologist. PT DROWSY, DENIES PAIN, LEFT BUTTOCKS W/ISLAND DRSG COVERING. Addendum: 07/09/19 at 1736 by Mary Nolan RN Amended: Links added.
--- NOTE | 2019-07-09 17:41 | NUR ---
Report called to receiving nurse. Transferred via BED, NO Belongings, RECEIVING RN AT BEDSIDE TO RECEIVE PT, BLL, CALL LIGHT GIVEN, SIDE RAILS UP X 2. Special Issues communicated to receiving nurse. YES. Addendum: 07/09/19 at 1810 by Mary Nolan RN Amended: Links added.
--- NOTE | 2019-07-09 17:58 | NUR ---
Received patient back to room 345b. Patient denies pain or discomfort at this time. Dressing to left buttock CDI. Post op vitals initiated. Addendum: 07/09/19 at 1759 by Sarah Ponce RN 96.7, 68, 14, 96% RA, 129/75
[2019-07-09] MEDS: insulin glargine (Lantus) pen - multi-dose SQ SCH (20:44)
[2019-07-10] VITALS: BP 128/78
[2019-07-10 04:00] VITALS: BP 148/86
[2019-07-10 05:06] LABS: BASOPHILS # (AUTO) 0.1 X10'3 (0-0.2); BASOPHILS % (AUTO) 1.3 % (0-1); EOSINOPHILS # (AUTO) 0.3 X10'3 (0-0.9); EOSINOPHILS % (AUTO) 4.2 % (0-6); HEMATOCRIT 31.2 % (42.0-52.0); HEMOGLOBIN 10.5 g/dl (14.0-17.9); LYMPHOCYTES # (AUTO) 1.2 X10'3 (1.1-4.8); LYMPHOCYTES % (AUTO) 15.5 % (21-51); MEAN CORPUSCULAR HEMOGLOBIN 29.7 PG (27.0-31.0); MEAN CORPUSCULAR HGB CONC 33.7 g/dL (33.0-36.5); MEAN CORPUSCULAR VOLUME 88.2 FL (78-98); MEAN PLATELET VOLUME 8.1 FL (7.4-10.4); MONOCYTES # (AUTO) 0.6 X10'3 (0-0.9); MONOCYTES % (AUTO) 7.1 % (2-12); NEUTROPHILS # (AUTO) 5.7 X10'3 (1.8-7.7); NEUTROPHILS % (AUTO) 71.9 % (42-75); PLATELET COUNT 254 X10'3 (140-440); RED BLOOD COUNT 3.54 X10'6 (4.70-6.10); RED CELL DISTRIBUTION WIDTH 14.9 % (11.5-14.5); WHITE BLOOD COUNT 7.9 X10'3 (4.5-11.0)
[2019-07-10 05:19] LABS: ALANINE AMINOTRANSFERASE 43 U/L (12-78); ALBUMIN 2.8 G/DL (3.4-5.0); ALBUMIN/GLOBULIN RATIO 0.6 (1.1-1.5); ALKALINE PHOSPHATASE 99 IU/L (46-116); ANION GAP 10 (8-16); ASPARTATE AMINO TRANSFERASE 44 U/L (10-37); BILIRUBIN,TOTAL 0.4 MG/DL (0.1-1.0); BLOOD UREA NITROGEN 49 MG/DL (7-18); BUN/CREATININE RATIO 6.9 (5.4-32.0); CALCIUM 8.1 MG/DL (8.5-10.1); CHLORIDE 101 MMOL/L (99-107); CREATININE 7.09 MG/DL (0.60-1.10); GLUCOSE 144 MG/DL (70-104); MAGNESIUM 2.2 MG/DL (1.5-2.4); PHOSPHORUS 5.2 MG/DL (2.3-4.5); POTASSIUM 4.3 MMOL/L (3.5-5.1); SODIUM 138 MMOL/L (135-145); TOTAL PROTEIN 7.2 G/DL (6.4-8.2); eGFR 8 ML/MIN
[2019-07-10 05:20] LABS: PARTIAL THROMBOPLASTIN TIME 27 SECONDS (22-32)
--- NOTE | 2019-07-10 06:47 | NUR ---
Patient in room [facility] 345. I have received report from JUANCARLOS MCDONALD and had the opportunity to ask questions and assume patient care.
--- NOTE | 2019-07-10 06:48 | NUR ---
Patient in room [facility] 345. I have received report from JUANCARLOS Ambriz and had the opportunity to ask questions and assume patient care.
[2019-07-10 07:00] VITALS: BP 146/78
[2019-07-10] MEDS: famotidine 20mg tablet PO SCH (07:46)
[2019-07-10] MEDS: calcium acetate 667mg (PhosLO) capsule PO SCH ×2 (07:46→17:37)
[2019-07-10] MEDS: sodium bicarbonate 650mg tablet PO SCH ×4 (07:46→20:38)
[2019-07-10] MEDS: docusate sod 100mg capsule PO SCH ×2 (07:47→20:38)
[2019-07-10] MEDS: lactobacillus rhamnosus 10,000 MMU CELLS/CAPSULE PO SCH ×2 (07:47→20:38)
[2019-07-10] MEDS: amox tr/potassium clavulanate 500mg/125mg TAB PO SCH (07:47)
[2019-07-10] MEDS: heparin, porcine 5000 units/ml vial SQ SCH ×2 (07:47→20:39)
[2019-07-10] MEDS: dorzolamide/timolol (Cosopt) ophthalmic drops 10ml bottle RIGHTEYE SCH ×2 (07:47→20:39)
[2019-07-10] MEDS: brimonidine 0.2% 5 ML ophthalmic drops RIGHTEYE SCH ×2 (07:47→20:39)
[2019-07-10] MEDS: FLUoxetine 10mg capsule PO SCH (07:47)
[2019-07-10] MEDS: amLODIPine 5mg tablet PO SCH (07:54)
[2019-07-10] MEDS: labetalol 100mg tablet PO SCH ×2 (07:54→20:38)
[2019-07-10] MEDS: furosemide 40mg tablet PO SCH ×2 (07:54→20:38)
[2019-07-10] MEDS ORDERED: normal saline 1000ml 250 ML IV PRN (08:58)
[2019-07-10] MEDS ORDERED: heparin 1,000unit/ml 10ml vial 10 ML IV ONE (08:58)
[2019-07-10] MEDS ORDERED: epoetin 20,000 units/ml inj IV ONE (09:00)
[2019-07-10] MEDS ORDERED: heparin 1,000 units/ml 10ml inj HE ONE ×2 (09:05)
--- NOTE | 2019-07-10 09:50 | NUR ---
dialysis nurse at bedside.
[2019-07-10 12:08] VITALS: BP 161/93
--- NOTE | 2019-07-10 12:38 | NUR ---
patient having dialysis.
--- NOTE | 2019-07-10 17:01 | NUR ---
Dr. Carlisle requested XRAY reports be sent to Dr. Chang in [place] upon pt's discharge (Dr. Chang may be doing pt's fistula repair). Primary RN, Sarah, notified.
[2019-07-10 18:00] VITALS: BP 127/80
--- NOTE | 2019-07-10 18:00 | NUR ---
Patient in room [facility] 345. I have received report from Sarah BAUER and had the opportunity to ask questions and assume patient care.
[2019-07-10] MEDS: insulin Lispro (HumaLOG) vial - multi-dose SQ SCH (18:36)
--- NOTE | 2019-07-10 18:54 | NUR ---
Problems reprioritized. Patient report given, questions answered & plan of care reviewed with frank carrillo.
[2019-07-10] MEDS: insulin glargine (Lantus) pen - multi-dose SQ SCH (21:00)
[2019-07-11 00:52] VITALS: BP 127/72
[2019-07-11 04:35] LABS: BASOPHILS # (AUTO) 0.1 X10'3 (0-0.2); BASOPHILS % (AUTO) 1.1 % (0-1); EOSINOPHILS # (AUTO) 0.2 X10'3 (0-0.9); EOSINOPHILS % (AUTO) 2.6 % (0-6); HEMATOCRIT 33.4 % (42.0-52.0); HEMOGLOBIN 11.1 g/dl (14.0-17.9); LYMPHOCYTES # (AUTO) 1.6 X10'3 (1.1-4.8); LYMPHOCYTES % (AUTO) 17.4 % (21-51); MEAN CORPUSCULAR HEMOGLOBIN 29.8 PG (27.0-31.0); MEAN CORPUSCULAR HGB CONC 33.3 g/dL (33.0-36.5); MEAN CORPUSCULAR VOLUME 89.3 FL (78-98); MEAN PLATELET VOLUME 7.5 FL (7.4-10.4); MONOCYTES # (AUTO) 0.7 X10'3 (0-0.9); NEUTROPHILS # (AUTO) 6.5 X10'3 (1.8-7.7); NEUTROPHILS % (AUTO) 70.9 % (42-75); PLATELET COUNT 265 X10'3 (140-440); RED BLOOD COUNT 3.74 X10'6 (4.70-6.10); RED CELL DISTRIBUTION WIDTH 14.5 % (11.5-14.5); WHITE BLOOD COUNT 9.1 X10'3 (4.5-11.0)
[2019-07-11 04:43] LABS: PARTIAL THROMBOPLASTIN TIME 26 SECONDS (22-32)
[2019-07-11 04:52] LABS: ALANINE AMINOTRANSFERASE 47 U/L (12-78); ALBUMIN/GLOBULIN RATIO 0.6 (1.1-1.5); ALKALINE PHOSPHATASE 122 IU/L (46-116); ANION GAP 10 (8-16); ASPARTATE AMINO TRANSFERASE 38 U/L (10-37); BILIRUBIN,TOTAL 0.4 MG/DL (0.1-1.0); BLOOD UREA NITROGEN 38 MG/DL (7-18); BUN/CREATININE RATIO 7.2 (5.4-32.0); CALCIUM 8.2 MG/DL (8.5-10.1); CHLORIDE 100 MMOL/L (99-107); GLUCOSE 156 MG/DL (70-104); PHOSPHORUS 3.8 MG/DL (2.3-4.5); POTASSIUM 4.6 MMOL/L (3.5-5.1); SODIUM 138 MMOL/L (135-145); TOTAL CARBON DIOXIDE 27.9 MMOL/L (24-32); eGFR 12 ML/MIN
--- NOTE | 2019-07-11 06:26 | NUR ---
Problems reprioritized. Patient report given, questions answered & plan of care reviewed with Rae BAUER.
--- NOTE | 2019-07-11 06:38 | NUR ---
Patient in room [facility] 345. I have received report from JUANCARLOS Lanza and had the opportunity to ask questions and assume patient care.
[2019-07-11 08:00] VITALS: BP 169/95
[2019-07-11] MEDS: calcium acetate 667mg (PhosLO) capsule PO SCH ×2 (08:10→17:28)
[2019-07-11] MEDS: amox tr/potassium clavulanate 500mg/125mg TAB PO SCH (08:10)
[2019-07-11] MEDS: docusate sod 100mg capsule PO SCH (08:10)
[2019-07-11] MEDS: lactobacillus rhamnosus 10,000 MMU CELLS/CAPSULE PO SCH (08:11)
[2019-07-11] MEDS: sodium bicarbonate 650mg tablet PO SCH ×3 (08:11→17:28)
[2019-07-11] MEDS: FLUoxetine 10mg capsule PO SCH (08:11)
[2019-07-11] MEDS: labetalol 100mg tablet PO SCH (08:11)
[2019-07-11] MEDS: brimonidine 0.2% 5 ML ophthalmic drops RIGHTEYE SCH (08:12)
[2019-07-11] MEDS: amLODIPine 5mg tablet PO SCH (08:12)
[2019-07-11] MEDS: dorzolamide/timolol (Cosopt) ophthalmic drops 10ml bottle RIGHTEYE SCH (08:13)
[2019-07-11] MEDS: heparin, porcine 5000 units/ml vial SQ SCH (08:13)
[2019-07-11] MEDS: famotidine 20mg tablet PO SCH (08:19)
[2019-07-11] MEDS: furosemide 40mg tablet PO SCH (08:19)
[2019-07-11] MEDS: insulin Lispro (HumaLOG) vial - multi-dose SQ SCH ×2 (08:56→13:58)
[2019-07-11] MEDS ORDERED: AMOX1TAB15 PO (09:59)
--- NOTE | 2019-07-11 10:18 | NUR ---
Reassessment: Pt s/p I&D 07/09. Pt continues with 75-100% PO intake on renal CHO controlled diet meeting nutrient needs for HD and wound healing. LBM 07/09. Will continue to follow. Recommend: 1. Continue renal CHO controlled diet 2. Continue PhosLO per MD [place] 3. Bowel care as needed 4. Encourage PO 5. Weight per rx Addendum: 07/11/19 at [address] Amended: Links added.
[2019-07-11 11:37] VITALS: BP 169/95
[2019-07-11 12:33] VITALS: BP 145/82
--- NOTE | 2019-07-11 18:02 | NUR ---
Patient was discharged into the care of a family friend with spouse, patient was alert, oriented, and stable. IV removed. No tele. All belongings taken from room. Education provided with the assistance of a bilingual friend and the assistance of RN, Jolly. Patient's medical information will be communicated to his MD in [facility] to fix the patients fistula. Patient appropriate for discharge assisted down by employee, patient has received all home medications they were admitted with.
== END 2019-07-11 18:10 | disposition home or self-care (01) | DRG 182 ==
LOC: ICU 2S 23:09 → SUR 3N 07-04 15:32
PROVIDERS: ADMIT Internal Medicine Critical Care Medicine
PROC: 5A1D70Z Performance of Urinary Filtration, Intermittent, Less than 6 Hours Per Day (ICD-10-PCS; 2019-07-02)
PROC: 0JH63XZ Insertion of Tunneled Vascular Access Device into Chest Subcutaneous Tissue and Fascia, Percutaneous Approach (ICD-10-PCS; 2019-07-03)
PROC: 02HV33Z Insertion of Infusion Device into Superior Vena Cava, Percutaneous Approach (ICD-10-PCS; 2019-07-03)
PROC: B548ZZA Ultrasonography of Superior Vena Cava, Guidance (ICD-10-PCS; 2019-07-03)
PROC: B5181ZA Fluoroscopy of Superior Vena Cava using Low Osmolar Contrast, Guidance (ICD-10-PCS; 2019-07-03)
PROC: 5A1D70Z Performance of Urinary Filtration, Intermittent, Less than 6 Hours Per Day (ICD-10-PCS; 2019-07-03)
PROC: 057Y3ZZ Dilation of Upper Vein, Percutaneous Approach (ICD-10-PCS; principal; 2019-07-04)
PROC: B51M1ZZ Fluoroscopy of Right Upper Extremity Veins using Low Osmolar Contrast (ICD-10-PCS; 2019-07-04)
PROC: 3E0234Z Introduction of Serum, Toxoid and Vaccine into Muscle, Percutaneous Approach (ICD-10-PCS; 2019-07-04)
PROC: 5A1D70Z Performance of Urinary Filtration, Intermittent, Less than 6 Hours Per Day (ICD-10-PCS; 2019-07-05)
PROC: 5A1D70Z Performance of Urinary Filtration, Intermittent, Less than 6 Hours Per Day (ICD-10-PCS; 2019-07-08)
PROC: 0HB6XZZ Excision of Back Skin, External Approach (ICD-10-PCS; 2019-07-09)
PROC: 5A1D70Z Performance of Urinary Filtration, Intermittent, Less than 6 Hours Per Day (ICD-10-PCS; 2019-07-10)
DX: T82.510A Breakdown (mechanical) of surgically created arteriovenous fistula, initial encounter (principal); I46.9 Cardiac arrest, cause unspecified; E11.22 Type 2 diabetes mellitus with diabetic chronic kidney disease; E87.5 Hyperkalemia; E11.319 Type 2 diabetes mellitus with unspecified diabetic retinopathy without macular edema; S31.829A Unspecified open wound of left buttock, initial encounter; I12.0 Hypertensive chronic kidney disease with stage 5 chronic kidney disease or end stage renal disease; N18.6 End stage renal disease; I44.0 Atrioventricular block, first degree; Z99.2 Dependence on renal dialysis; X58.XXXA Exposure to other specified factors, initial encounter; Y93.89 Activity, other specified; Y92.89 Other specified places as the place of occurrence of the external cause; Y99.8 Other external cause status; Z23 Encounter for immunization; Y83.8 Other surgical procedures as the cause of abnormal reaction of the patient, or of later complication, without mention of misadventure at the time of the procedure; L72.3 Sebaceous cyst
CPT/HCPCS: 36415; 36558; 36902; 71045; 73560; 76882; 76937; 77001; 80053; 80061; 82009; 82948; 83036; 83605; 83690; 83735; 84100; 84145; 84443; 84484; 85025; 85610; 85730; 87040; 87070; 87077; 87081; 87185; 87186; 87340; 90732; 90935; 93005; 93306; 93931; 93971; 97116; 97161; 97530; 97535; 99152; 99153; A4618; A7000; A9270; C1725; C1750; C1769; C1887; C1894; G0257; G0378; J0360; J0690; J1644; J1815; J2001; J2150; J2250; J3010; J7120; Q4081; Q9967